=== PATIENT | male | born 1995 | race African-American/Black ===

== ENCOUNTER 2018-05-03 02:49 | Emergency (ER) | payer OTHER, BC ==
[~2018-05-03] VITALS: Ht 205.7 cm; Wt 97.5 kg
[~2018-05-03 02:49] MED LIST: ALBU2.5V13 NEB; FLUT1DIS3 INH; GUAI120013 PO; GUAI600T53 PO; MONT10TA22 PO; PANT40TA2 PO; PRED20TA PO; TIOT18CA3 INH
[2018-05-03] MEDS ORDERED: IPRATROPIUM NEB FS 0.5 MG/2.5 ML AMPUL.NEB NEB ONE (03:00)
[2018-05-03] MEDS ORDERED: ALBUTEROL FS 2.5 MG/3 ML VIAL.NEB NEB ONE ×2 (03:00→04:00)
[2018-05-03] MEDS ORDERED: AZITHROMYCIN 250 MG TABLET PO ONE (03:00)
[2018-05-03] MEDS ORDERED: predniSONE 20 MG TABLET PO ONE (03:00)
--- NOTE | 2018-05-03 03:00 | NUR ---
PT BIB SELF, AMBULATORY TO ER BED 9, PT C/O COUGH/ CONGESTION X 4 DAYS, PT STATES" HX OF ASTHMA", RR EVEN UNLABORED, HOWEVER, C/O SOB. PT GOWNED AND PLACED ON MONITOR, DR MCGEE AT BED SIDE FOR EVAL.
[2018-05-03] MEDS ORDERED: AZITHROMYCIN 250 MG TABLET ONE (03:04)
[2018-05-03] MEDS ORDERED: predniSONE 20 MG TABLET ONE (03:05)
--- NOTE | 2018-05-03 03:05 | NUR ---
RT PAGED FOR BREATHING TX.
[2018-05-03] MEDS ORDERED: IPRATROPIUM NEB FS 0.5 MG/2.5 ML AMPUL.NEB ONE (03:08)
[2018-05-03] MEDS ORDERED: ALBUTEROL FS 2.5 MG/3 ML VIAL.NEB ONE ×2 (03:08→03:48)
--- NOTE | 2018-05-03 03:10 | NUR ---
RT AT BEDSIDE FOR BREATHING TX.
[2018-05-03] MEDS ORDERED: GUAIFENESIN/CODEINE 10 ML UDC ONE (03:44)
--- NOTE | 2018-05-03 03:56 | NUR ---
RT AT BEDSIDE FOR 2ND BREATHING TX
[2018-05-03] MEDS ORDERED: GUAIFENESIN/CODEINE 10 ML UDC PO PRN (04:00)
--- NOTE | 2018-05-03 05:05 | NUR ---
Patient is resting comfortably in bed with eyes closed. Easily aroused. VSS
--- NOTE | 2018-05-03 05:24 | NUR ---
GRANDMOTHER AT BEDSIDE.
[2018-05-03 05:45] VITALS: BP 118/72
--- NOTE | 2018-05-03 05:47 | NUR ---
Patient discharged to home in stable condition. Written and verbal after care instructions given. Patient verbalizes understanding of instruction. PT INSTRUCTED NOT TO [employer], PT VERBALIZES UNDERSTANDING, WITH GRAND MOTHER TO PROVIDE TRANSPORTATION.
== END 2018-05-03 05:46 | disposition home or self-care (01) ==
LOC: ER 02:50
DX: J45.909 Unspecified asthma, uncomplicated (principal); Z91.011 Allergy to milk products; Z98.890 Other specified postprocedural states; F17.200 Nicotine dependence, unspecified, uncomplicated
CPT/HCPCS: 94640 ×2; 99284; A4606; J7512; Z7610

== ENCOUNTER 2018-06-19 11:52 | Emergency (ER) | payer OTHER ==
[~2018-06-19] VITALS: Ht 205.7 cm; Wt 99.8 kg
[2018-06-19 11:52] VITALS: BP 130/87
[2018-06-19 13:08] LABS: APPEARANCE,URINE Turbid (CLEAR); BILIRUBIN,URINE Negative (NEGATIVE); BLOOD, URINE Small Ery/uL (NEGATIVE); COLOR,URINE Yellow (YELLOW); KETONES,URINE Negative (NEGATIVE); LEUKOCYTE ESTERASE ,URINE Large (NEGATIVE); NITRITE, URINE Negative (NEGATIVE); PH,URINE 6.5 (5.0-8.0); PROTEIN,URINE 30 mg/dl (NEGATIVE); UGLUCOSE Negative (NEGATIVE)
[2018-06-19 13:17] LABS: BACTERIA,URINE Few /HPF (None Seen); SQUAMOUS EPITHELIAL CELL,UR Few /HPF (None Seen); WBC,URINE 80-100 /HPF (0-3)
== END 2018-06-19 13:34 | disposition home or self-care (01) ==
LOC: ER 12:05
DX: N39.0 Urinary tract infection, site not specified (principal); J45.909 Unspecified asthma, uncomplicated; Z91.011 Allergy to milk products; F17.200 Nicotine dependence, unspecified, uncomplicated
CPT/HCPCS: 81000-TC; 87491; 87591; A4606; Z7610

== ENCOUNTER 2018-11-30 13:14 | Emergency (ER) | payer BC, OTHER ==
[~2018-11-30] VITALS: Ht 210.8 cm; Wt 79.4 kg
[2018-11-30 13:26] VITALS: BP 134/74
== END 2018-11-30 13:58 | disposition home or self-care (01) ==
LOC: ER 13:18
DX: J02.9 Acute pharyngitis, unspecified (principal); J45.909 Unspecified asthma, uncomplicated; F17.200 Nicotine dependence, unspecified, uncomplicated; Z98.890 Other specified postprocedural states; Z91.011 Allergy to milk products
CPT/HCPCS: 87070; 87880; 99283; A4606; Z7610; 86403-TC